=== PATIENT | male | born 1995 | race Caucasian/White ===

== ENCOUNTER 2016-12-06 15:22 | Emergency (ER) | payer SELFPAY ==
[2016-12-06 18:17] VITALS: O2SAT 98
[2016-12-06 18:18] VITALS: BP 126/88; PULSE 86; RESP 16; TEMP 97.9
--- NOTE | 2016-12-06 19:02 | EDPHY ---
H & P Time Seen by Provider: 12/06/16 17:49 Smoking Status: Never smoked Physical Exam: GEN: Awake, alert, oriented, no acute distress, vital signs reviewed, temperature 36.9degrees RESP: nl resp effort MSK: Right ankle with diffuse swelling, ecchymosis to medial and lateral ankle , tenderness to lateral malleolus, ATFL, CFL. Tenderness to calcaneus, no tenderness to base of 5th metatarsal, 2+ pedal pulses, sensation intact to light touch. Compartments are soft. No T or L-spine tenderness to palpation SKIN: No break in skin Constitutional: Initial Vital Signs Heart Rate 102 H 12/06/16 15:45 Respiratory Rate 18 12/06/16 15:45 Blood Pressure 134/96 H 12/06/16 15:45 O2 Sat (%) 97 12/06/16 15:45 O2 Delivery Mode Room Air Allergies/Adverse Reactions: No Known Allergies Allergy (Unverified 12/06/16 15:51) Home Medications: Medication Instructions Recorded Hydrocodone/APAP 5/325 [[place] 1 tab PO Q4H PRN #20 tab 12/06/16 5/325] MDM/Departure - MDM Imaging Results: Imaging Impressions Ankle X-Ray 12/06/16 15:54 Impression: Nondisplaced fracture of the lateral talar dome. Findings discussed with VICKIE MANLEY 12/06/2016 at 17:46. Calcaneus X-Ray 12/06/16 18:08 Impression: No calcaneus fracture. Imaging: I viewed and interpreted images myself ED Course/Re-evaluation: 21-year-old male presents with a nondisplaced chip fracture of his lateral talar dome. Patient is placed in a [place] boot, fit for crutches and discharged. Patient is given strict instructions on ice, elevation. He is planning to travel to [place] via car. In the next few days. I discussed the risk of blood clots with him. I recommend starting a daily aspirin. Patient has been discharged with Terry hose. Patient is given strict return precautions for any pain that is not controlled, new symptoms or concerns. - Depart Disposition: Home, Routine, Self-Care Clinical Impression: Nondisplaced dome fracture of left talus Qualifiers: Encounter type: initial encounter Fracture type: closed Qualified Code(s): S92.145A - Nondisplaced dome fracture of left talus, initial encounter for closed fracture Condition: Good Instructions: Ankle Fracture (ED) Additional Instructions: Rest, ice, elevate, above the level of your heart most of the day. Keep [place] boot in place. Use crutches, do not walk on this. Follow up with an orthopedist at 1st available appointment. Wear compression stockings. Take 325 mg of aspirin daily while traveling home. Take 600 mg of ibuprofen every 8 hours with food as needed for pain for 3-5 days, take [place] for severe pain. Do ankle pumps multiple times an hour while traveling, get up and walk every 1- 2 hours. Return to the emergency department for any pain that is not controlled, numbness or tingling in your foot, any new symptoms or concerns. Call orthopedist 1st thing in the morning to schedule an appointment to be seen at 1st available appointment. Prescriptions: Hydrocodone/APAP 5/325 [[place] 5/325] 1 tab PO Q4H PRN #20 tab PRN Reason: Pain, Moderate Referrals: Kishore Krishnamurthy MD [Medical Doctor] - As per Instructions (Orthopedist on-call )
== END 2016-12-06 19:55 | disposition home or self-care (01) ==
DX: S92.145A Nondisplaced dome fracture of left talus, initial encounter for closed fracture (principal); X58.XXXA Exposure to other specified factors, initial encounter
CPT/HCPCS: L4386